=== PATIENT | female | born 1940 | race Caucasian/White ===

== ENCOUNTER 2018-05-31 07:00 | Outpatient (CLI) | payer MEDICARE, OTHER ==
[~2018-05-31] VITALS: Ht 157.5 cm; Wt 84.1 kg
--- NOTE | ~2018-05-31 | HEMODYNAMI ---
PATIENT:ZAHIDA MAS MEDICAL RECORD: [id number] : 36 LOCATION:[facility] ADMISSION DATE: 05/31/18 Generatedon:05/31/201810:19 Patient name: ZAHIDA MAS Patient #: [id number] SSN: : 1940 Date of study: 05/31/2018 Page: Of Hemodynamic Procedure Report Patient Data Patient Demographics Procedure consent was obtained First Name: ZAHIDA Gender: Female Last Name: CHACE : 1940 [facility] Initial: C Age: 77 year(s) Patient #: [id number] Race: Unknown Additional ID: [id number] Contact details Address: [address] [place] [address] State: [place] City: [facility] Zip code: [address] Past Medical History Allergies: No known allergies Admission Admission Data Admission Date: 05/31/2018 Admission Time: 7:00 Height (in.): 61 BSA: 1.87 (m2) Height (cm.): 154.94 BMI: 36.84 (kg/m2) Weight (lbs.): 195 Weight (kg.): 88.45 Lab Results Lab Result Date: 05/31/2018 Lab Result Time: 0:00 Biochemistry Name Units Result Min Max BUN mg/dl 15 --(--*-)-- 7 18 Creatinine mg/dl 1 --(--*-)-- 0.6 1.3 CBC Name Units Result Min Max Hematocrit % 41.9 -*(----)-- 42 54 Hemoglobin g/dl 13.7 --(*---)-- 13.5 17.5 Procedure Procedure Types Cath Procedure Diagnostic Procedure C [facility] w/Coronaries Sedation Charges Moderate Sedation up to 15 minutes Procedure Description Procedure Date Procedure Date: 05/31/2018 Procedure Start Time: 9:52 Procedure End Time: 10:18 Procedure Staff Name Function Ryan Finn MD Performing Physician Diane Cronin RT Monitor Sandro Flores RT Scrub Ching Ashby RN Nurse Procedure Data Cath Procedure Fluoroscopy Diagnostic fluoroscopy Total fluoroscopy Time: 3 time: 3 min min Diagnostic fluoroscopy Total fluoroscopy dose: 508 dose: 508 mGy mGy Contrast Material Contrast Material Type Amount (ml) Isovue 300 66 Entry Location Entry Primary Successful Side Size Upsize Upsize Entry Closure Succes sful Closure Location (Fr) 1 (Fr) 2 (Fr) Remarks Device Remarks Femoral Right 5 Fr Exoseal artery Estimated blood loss: 5 ml Diagnostic catheters Device Type Used For End Catheter Placement MULTIPACK JL 4.0 5Fr Procedure catheter MULTIPACK 3DRC 5Fr Procedure catheter MULTIPACK Pigtail 5 Fr Procedure catheter Procedure Complications No complications Procedure Medications Medication Administration Route Dosage Oxygen etCO2 Nasal cannula 2 l/min Lidocaine 2% added to field 20 Heparin Flush Bag added to field 2 bags (1000units/500ml NS) 0.9% NaCl I.V. 100 ml/hr Versed I.V. 1 mg Fentanyl I.V. 50 mcg Versed I.V. 1 mg Fentanyl I.V. 50 mcg Fentanyl I.V. 25 mcg Hemodynamics Rest BSA: 1.87 (m2) O2 Consumption: Estimated: 171.46 (ml/min) O2 Consumption indexed : Estimated:91.69 (ml/min/m) Heart Rate: 74 (bpm) Pressure Samples Time Site Value (mmHg) Purpose Heart Use Rate(bpm) 10:07 LV 158/-3,16 Snapshot 74 10:08 AO 168/64(106) Pullback 75 10:08 LV 161/-3,17 Pullback 75 Gradients Valve Time Site 1 Site 2 Mean SEP/DFP Peak To Heart Use (mmHg) (sec/min) Peak Rate (mmHg) (bpm) Aortic 10:08 LV AO 0 3 0 75 161/-3,17 168/64(106) Calculations Valve P-P Mean Valve Index Valve Source Name Gradient Area Flow (cm2) Aortic 0 0 0 0 Snapshots Pre Cath Intra NCS Post Cath Vital Signs Time Heart Resp SPO2 etCO2 NIBP (mmHg) Rhythm Pain Sedation Rate (ipm) (%) (mmHg) Status Level (bpm) 9:41:47 63 16 95 35.6 166/78(130) NSR 0 (11) 10(A) , No pain 9:46:13 69 17 96 13.3 141/73(113) NSR 0 (11) 10(A) , No pain 9:50:36 63 17 95 0 140/71(104) NSR 0 (11) 10(A) , No pain 9:54:51 64 13 94 0 122/64(99) NSR 0 (11) 9(A) , No pain 10:00:05 64 11 94 13 154/73(113) NSR 0 (11) 9(A) , No pain 10:05:32 68 14 95 11.1 150/73(114) NSR 0 (11) 9(A) , No pain 10:09:59 71 12 96 0 155/77(112) NSR 0 (11) 9(A) , No pain 10:14:21 71 20 98 37.9 160/83(118) NSR 0 (11) 10(A) , No pain 10:18:43 66 11 97 38.7 151/78(127) NSR 0 (11) 10(A) , No pain Medications Time Medication Route Dose Verified Delivered Reason Notes Eff ectiveness by by 9:45:40 Oxygen etCO2 2 Ryan Buffie used for Nasal l/min Aakash Ashby instructional technologist cannula 9:45:46 Lidocaine 2% added 20ml Ryan Ryan for local to vial Aakash Finn MD anesthetic field 9:45:52 Heparin Flush added 2 Ryan Ryan used for Bag to bags Aakash Finn MD procedure (1000units/500ml field NS) 9:46:01 0.9% NaCl I.V. 100 Ryan Buffie Per ml/hr Aakash Ashby RN physician 9:50:03 Versed I.V. 1 mg Ryan Buffie for Aakash Ashby RN sedation 9:50:09 Fentanyl I.V. 50 Ryan Buffie for mcg Aakash Ashby RN sedation 9:56:40 Versed I.V. 1 mg Ryan Buffie for Aakash Ashby RN sedation 9:56:44 Fentanyl I.V. 50 Ryan Buffie for mcg Aakash Ashby RN sedation 10:06:46 Fentanyl I.V. 25 Ryan Buffie for mcg Aakash Ashby RN sedation Procedure Log Time Note 8:56:18 Signed procedure consent form obtained from patient. 8:56:19 Diagnostic Cath status Elective 8:56:20 Time tracking: Regular hours (M-F 7:00 - 5:00) 8:56:24 Plan of Care:Hemodynamics will remain stable., Cardiac rhythm will remain stable., Comfort level will be maintained., Respiratory function will remain adequate., Patient/ family verbilizes understanding of procedure., Procedure tolerated without complication., Recovers from procedure without complications.. 8:56:40 H&P Date Dictated: 05/28/2018 Within 30 days and on chart., H&P Addendum completed by physician on day of procedure. (MUST COMPLETE FOR ALL OUTPATIENTS). 8:56:46 Patient allergic to No known allergies 8:56:52 Patient Height : 61 inches 8:56:56 Patient Weight : 195 lbs 9:20:16 Lab Result : BUN 15 mg/dl 9:20:16 Lab Result : Hemoglobin 13.7 g/dl 9:20:16 Lab Result : Creatinine 1 mg/dl 9:20:16 Lab Result : Hematocrit 41.9 % 9:22:31 Ching Ashby RN sent for patient. Start room use. 9:32:27 Patient received from Pre/Post Procedure Room to CCL 1 Alert and oriented. Tansferred to table in Supine position. 9:32:28 Warm blankets applied, and liang hugger turned on for patient comfort. 9:32:29 Correct patient and procedure confirmed by team. 9:32:29 ECG and BP/O2 sat monitors applied to patient. 9:39:36 Vital chart was started 9:43:17 Rhythm: sinus rhythm 9:43:18 Full Disclosure recording started 9:43:19 Pre-procedure instructions explained to patient. 9:43:19 Pre-op teaching completed and patient verbalized understanding. 9:43:21 Family in patients room. 9:43:22 Patient NPO since Midnight. 9:43:24 Is patient on blood thinner?No 9:43:25 Patient diabetic? Yes. 9:43:26 If diabetic: On Metformin? Yes 9:43:29 If on Metformin: Last Dose? 05/28/2018 9:43:32 Previous problem with sedation/anesthesia? No ? 9:43:34 Snore? Yes 9:43:36 Sleep apnea? No 9:43:37 Deviated septum? No 9:43:42 Opens mouth fully? Yes 9:43:43 Sticks out tongue? Yes 9:43:46 Airway obstruction? No ? 9:43:51 Dentures? Yes OUT 9:43:55 Pre procedure: right dorsailis pedis pulse 1+ Palpable, but thready & weak; easily obliterated 9:43:58 Patient pain scale 0/10 ?. 9:44:02 IV patent on arrival in right antecubital with 0.9% NaCl at O. 9:44:12 Lab results completed and on chart. 9:44:15 Right groin area was prepped with chlora-prep and draped in sterile fashion 9:44:16 Alarms reviewed by R. N. 9:44:17 Sharps counted by scrub and verified by R.N. 9:44:21 Use device set Femoral Dx 9:44:22 ACIST Syringe (52262) opened to sterile field. 9:44:23 Bag Decanter (2002S) opened to sterile field. 9:44:25 ACIST Manifold (74391) opened to sterile field. 9:44:25 ACIST Hand Control (76525) opened to sterile field. 9:44:26 Tegaderm 4 x 4 (1626W) opened to sterile field. 9:44:28 Medline Cath Pack ([id number]) opened to sterile field. 9:44:29 DIAGNOSTIC WIRE .035 260cm J wire (782567) opened to sterile field. 9:44:30 DIAGNOSTIC Multipack 5Fr catheter set (MS3240) opened to sterile field. 9:44:31 SHEATH 5FR [place] ([id number]) opened to sterile field. 9:45:40 Oxygen 2 l/min etCO2 Nasal cannula was administered by Ching Ashby RN; used for procedure; 9:45:46 Lidocaine 2% 20ml vial added to field was administered by Ryan Finn MD; for local anesthetic; 9:45:52 Heparin Flush Bag (1000units/500ml NS) 2 bags added to field was administered by Ryan Finn MD; used for procedure; 9:46:01 0.9% NaCl 100 ml/hr I.V. was administered by Ching Ashby RN; Per physician; 9:46:50 Physician arrived 9:46:51 Final Timeout: patient, procedure, and site verified with staff and physician. All members of the team are in agreement. 9:46:54 Right groin site verified by team. 9:47:05 Maximum allowable Isovue 300 dose 300ml. Physician notified. (300ml for normal creatinines. For patients with creatinine of 1.7 or higher multiply weight(kg) x 5 divided by creatinine.) 9:47:10 Fire Safety Assessment: A--An alcohol-based skin anteseptic being used preoperatively., C--Open oxygen or nitrous oxide is being used., D--An ESU, laser, or fiber-optic light is being used. 9:47:13 Physical assessment completed. ASA score P 2 - A patient with mild systemic disease as per Ryan Finn MD. 9:47:17 Sedation plan: IV Moderate Sedation Medication:Versed, Fentanyl 9:49:41 Zero performed for pressure channel P1 9:50:03 Versed 1 mg I.V. was administered by Ching Ashby RN; for sedation; 9:50:09 Fentanyl 50 mcg I.V. was administered by Ching Ashby RN; for sedation; 9:52:35 Procedure started. 9:52:59 Local anesthetic to right femoral artery with Lidocaine 2% by Ryan Finn MD.INITIAL ACCESS ONLY 9:56:40 Versed 1 mg I.V. was administered by Ching Ashby RN; for sedation; 9:56:44 Fentanyl 50 mcg I.V. was administered by Ching Ashby RN; for sedation; 10:01:10 A 5 Fr sheath was inserted into the Right Femoral artery 10:01:40 A MULTIPACK JL 4.0 5Fr catheter was advanced over the wire and used for Procedure. 10:03:36 LCA angiography performed. 10:04:18 Catheter exchanged over wire. 10:04:25 A MULTIPACK 3DRC 5Fr catheter was advanced over the wire and used for Procedure. 10:05:31 RCA angiography performed. 10:05:48 Catheter exchanged over wire. 10:06:17 A MULTIPACK Pigtail 5 Fr catheter was advanced over the wire and used for Procedure. 10:06:32 LV gram done using EDUARDO 10:06:34 Injector settings: Ml/sec: 10, Volume: 20, 10:06:46 Fentanyl 25 mcg I.V. was administered by Ching Ashby RN; for sedation; 10:07:03 LV hemodynamics recorded. 10:07:14 EF : 60 % 10:12:56 Catheter removed. 10:12:58 EXOSEAL 5Fr (EX500) opened to sterile field. 10:14:09 Sheath removed intact; hemostasis achieved with Exoseal to the Right Femoral artery. 10:14:12 Procedure ended.(Physican Out) 10:14:27 Fluoroscopy time 03.00 minutes. 10:14:33 Fluoroscopy dose: 508 mGy 10:14:33 Flurop Dose total: 508 10:14:36 Contrast amount:Isovue 300 66ml. 10:14:37 Sharps counted by scrub and verified by R.N. 10:14:40 Post-op/insertion site Right Femoral artery dressed using a 4 x 4 and Tegaderm. 10:17:07 Post-procedure physical assessment completed. ASA score P 2 - A patient with mild systemic disease as per Ryan Finn MD. 10:17:11 Post procedure rhythm: sinus rhythm 10:17:17 Estimated blood loss: 5 ml 10:17:18 Post procedure instruction explained to patient.Patient verbalizes understanding. 10:17:19 Patient needs reinforcement of post procedure teaching. 10:17:47 Procedure type changed to Cath procedure, Diagnostic procedure, LHC, LHC w/Coronaries, Sedation Charges, Moderate Sedation up to 15 minutes 10:18:11 Procedure and supply charges have been captured, reviewed, submitted and are correct. 10:18:13 Procedure Complication : No complications 10:18:27 Vital chart was stopped 10:18:28 See physician's report for complete and final results. 10:18:30 Report given to Pre/Post Procedure Room. 10:18:35 Patient transfered to Pre/Post Procedure Room with Bed. 10:18:37 Procedure ended. 10:18:37 Full Disclosure recording stopped 10:18:40 End room use (Document Last) Device Usage Item Name Manufacture Quantity Catalog Hospital Part Current Minimal L ot# / Number Charge Number Stock Stock Serial# Code ACIST Acist 1 40716 639474 203508 853939 20 Syringe Medical (60936) Systems Inc Bag Microtek 1 933851 02846 110810 5 Decanter Medical Inc. () ACIST Acist 1 01787 047549 473890 521564 5 Manifold Medical (26756) Systems Inc ACIST Hand Acist 1 46294 444806 150643 342146 5 Control Medical (93467) Systems Inc Tegaderm 4 3M 1 1626W 585752 934193 611019 5 x 4 (1626W) Medline Medline 1 [id number] 004330 23640 178170 5 Cath Pack ([id number]) DIAGNOSTIC St Tez 1 955434 596201 301277 039861 30 WIRE .035 260cm J wire (443666) DIAGNOSTIC Cardinal 1 SM3292 511611 58830 866909 30 Multipack Health 5Fr catheter set (LZ1778) SHEATH 5FR Terumo 1 NGY452 590653 408083 296610 5 [place] (QSX120) MULTIPACK Cardinal 1 364327 5 JL 4.0 5Fr Health catheter MULTIPACK Cardinal 1 [id number] 5 3DRC 5Fr Health catheter MULTIPACK Cardinal 1 506191 5 Pigtail 5 Health Fr catheter EXOSEAL 5Fr Cardinal 1 EX500 764188 527114 378847 10 (EX500) Health Signature Audit [place] Stage Time Signature Unsigned Intra-Procedure 05/31/2018 Diane Cronin 10:19:43 AM RT(R) Signatures Monitor : Diane Cronin Signature : RT Date : Time : [id number] [place] [address]
[2018-05-31] MEDS ORDERED: GLUCOPHAGE1000 MG PO (07:26)
[2018-05-31 07:36] VITALS: BP 185/76; Ht 157.5 cm; Wt 84.1 kg
[2018-05-31 07:44] LABS: BASOPHILS 0.4 % (0-2); HEMATOCRIT 41.9 % (36.0-48.0); HEMOGLOBIN 13.7 g/dL (12-16); IMMATURE GRANULOCYTES 0.1 % (0-5); LYMPHOCYTES 22.8 % (15-50); MCH 28.4 pg (26.0-34.0); MCHC 32.7 g/dL (31.0-37.0); MCV 86.7 fL (80.0-100.0); MEAN PLATELET VOLUME 9.5 fL (7.4-10.4); NEUTROPHILS 62.7 % (40-80); PLATELET COUNT 271 10x3/uL (130-400); RBC 4.83 10x6/uL (4.00-5.40); RDW 12.4 % (11.5-14.5); WBC 7.8 10x3/uL (4.8-10.8)
[2018-05-31 07:52] LABS: ANION GAP 10.6 mmol/L (8-16); CALCIUM 8.6 mg/dL (8.5-10.1); CARBON DIOXIDE 29.2 mmol/L (21.0-32.0); POTASSIUM - SERUM 3.8 mmol/L (3.5-5.1)
--- NOTE | 2018-05-31 10:46 | NUR ---
PO FLUIDS SERVED. PT IS ALERT, DR REYES HAS ROUNDED AND SPOKE WITH PT AND SON. HOB IS FLAT, PT INSTRUCTED TO KEEP HEAD FLAT TO PILLOW AND RIGHT LEG STRAIGHT. VSS, RESP WITH EASE ON O2 AT 2LPM VIA NC. DRESSING IS CDI, PEDAL PULSES PALPABLE.
[2018-05-31] MEDS ORDERED: XANAX0.5 MG PO (10:54)
--- NOTE | 2018-05-31 11:16 | NUR ---
PT DENIES ANY C/O. DRESSING REMAINS CDI TO RIGHT GROIN, AREA IS SOFT AND NONTENDER. PEDAL PULSES PALPABLE. HOB IS FLAT, CALL LIGHT IN REACH, NO FAMILY AT BEDSIDE AT THIS TIME.
--- NOTE | 2018-05-31 11:38 | NUR ---
DRESSING IS CDI, PEDAL PULSES PALPABLE. HOB IS FLAT, PT DENIES NEEDS AT THIS TIME. ANA PO FLUIDS. BP IS 134/53, NSR RATE 61.
--- NOTE | 2018-05-31 12:03 | NUR ---
SON AT BEDSIDE, PT IS ALERT AND DENIES ANY C/O. DRESSING REMAINS CDI AND PEDAL PULSES PALPABLE. HOB IS FLAT, VSS. CALL LIGHT IN REACH.
--- NOTE | 2018-05-31 13:02 | NUR ---
1220 HOB ELEVATED AND SANDWICH TRAY SERVED. PT IS ALERT AND DENIES ANY C/O. DRESSING IS CDI TO RIGHT GROIN, AREA IS SOFT AND NONTENDER. PEDAL PULSES PALPABLE. VSS, SON AT BEDSIDE. 1240 DRESSING REMAINS CDI TO RIGHT GROIN, PEDAL PULSES PALPABLE. PT DENIES ANY C/O. IV DC'D WITH CATH INTACT. PT DRESSING FOR DC WITH ASSIST.
--- NOTE | 2018-05-31 13:04 | NUR ---
PT HAS DRESSED FOR DC TO HOME. DC INSTRUCTIONS HAVE BEEN REVIEWED WITH PT AND SON WHO VERBALIZE UNDERSTANDING. PT ESCORTED TO PRIVATE AUTO VIA WC BY NURSE WITH SON DRIVING HER HOME. PT DENIES ANY C/O UPON DC. HAS ALL PERSONAL BELONGINGS AND DC INSTRUCTIONS AT TIME OF DISCHARGE TO HOME.
== END 2018-05-31 13:05 | disposition home or self-care (01) ==
LOC: D.CATH 07:00
PROVIDERS: ATTEND Internal Medicine Cardiovascular Disease
DX: I25.119 Atherosclerotic heart disease of native coronary artery with unspecified angina pectoris (principal); T82.855A Stenosis of coronary artery stent, initial encounter; Z01.812 Encounter for preprocedural laboratory examination

== ENCOUNTER 2018-06-14 06:22 | Outpatient (CLI) | payer MEDICARE, OTHER ==
[~2018-06-14] VITALS: Ht 157.5 cm; Wt 84.1 kg
--- NOTE | ~2018-06-14 | HEMODYNAMI ---
PATIENT:ZAHIDA MAS MEDICAL RECORD: [id number] : 36 LOCATION:[facility] ADMISSION DATE: 06/14/18 Generatedon:06/14/201810:30 Patient name: ZAHIDA MAS Patient #: [id number] SSN: : 1940 Date of study: 06/14/2018 Page: Of Hemodynamic Procedure Report Patient Data Patient Demographics Procedure consent was obtained First Name: ZAHIDA Gender: Female Last Name: CHACE : 1940 [facility] Initial: C Age: 77 year(s) Patient #: [id number] Race: Unknown Additional ID: [id number] Contact details Address: [address] [place] [address] State: [place] City: [facility] Zip code: [address] Past Medical History Allergies: No known allergies Admission Admission Data Admission Date: 06/14/2018 Admission Time: 6:22 Weight (lbs.): 185.19 Weight (kg.): 84 Lab Results Lab Result Date: 06/14/2018 Lab Result Time: 7:00 Biochemistry Name Units Result Min Max BUN mg/dl 13 --(--*-)-- 7 18 Creatinine mg/dl 0.8 --(-*--)-- 0.6 1.3 CBC Name Units Result Min Max Hematocrit % 38.4 *-(----)-- 42 54 Hemoglobin g/dl 12.3 *-(----)-- 13.5 17.5 Procedure Procedure Types Cath Procedure PCI Procedure Coronary Stent Coronary Stent Initial Procedure Description Procedure Date Procedure Date: 06/14/2018 Procedure Start Time: 9:13 Procedure End Time: 10:26 Procedure Staff Name Function Ryan Finn MD Performing Physician Claritza Jasso RT Monitor Sandro Flores RT Scrub Theresa Arrington RN Nurse Jim Ko RT Scrub Procedure Data Cath Procedure Fluoroscopy Diagnostic fluoroscopy Total fluoroscopy Time: time: 11.8 min 11.8 min Diagnostic fluoroscopy Total fluoroscopy dose: 987 dose: 987 mGy mGy Contrast Material Contrast Material Type Amount (ml) Isovue 300 138 Entry Location Entry Primary Successful Side Size Upsize Upsize Entry Closure Succes sful Closure Location (Fr) 1 (Fr) 2 (Fr) Remarks Device Remarks Femoral Right 6 Fr 6 Fr Exoseal artery Short Long Femoral Left 6 Fr Exoseal artery Short Estimated blood loss: 5 ml Diagnostic catheters Device Type Used For End Catheter Placement DIAGNOSTIC Pigtail 5Fr Multi-vessel catheter ([id number]) Angiography Procedure Complications No complications Procedure Medications Medication Administration Route Dosage 0.9% NaCl I.V. 100 ml/hr Oxygen etCO2 Nasal cannula 2 l/min Lidocaine 2% added to field 20 Heparin Flush Bag added to field 2 bags (1000units/500ml NS) Versed I.V. 2 mg Fentanyl I.V. 50 mcg Versed I.V. 2 mg Fentanyl I.V. 50 mcg Fentanyl I.V. 50 mcg Fentanyl I.V. 50 mcg Versed I.V. 2 mg Heparin Bolus I.V. 8500 units Nitroglycerin IC/IA I.C. 100 mcg Hemodynamics Rest HGB: 12.3 (g/dl) Heart Rate: 74 (bpm) Snapshots Pre Cath Intra NCS Post Cath Vital Signs Time Heart Resp SPO2 etCO2 NIBP (mmHg) Rhythm Pain Status Sedation Rate (ipm) (%) (mmHg) Level (bpm) 9:05:12 67 20 98 21.8 207/95(145) NSR 0 (11) , No 10(A) pain 9:09:39 69 17 99 15 175/87(137) NSR 0 (11) , No 10(A) pain 9:14:09 67 16 97 12 176/87(135) NSR 0 (11) , No 10(A) pain 9:18:43 66 14 98 15.8 170/77(133) NSR 0 (11) , No 9(A) pain 9:23:16 69 16 98 15.8 172/83(130) NSR 0 (11) , No 9(A) pain 9:27:46 68 11 98 17.3 178/86(127) NSR 0 (11) , No 9(A) pain 9:32:17 69 14 98 12.8 158/80(133) NSR 0 (11) , No 9(A) pain 9:38:17 89 19 96 24.1 212/106(154) NSR 5 (11) , 10(A) Very distressing 9:42:50 73 14 96 46.8 168/79(125) NSR 0 (11) , No 9(A) pain 9:47:20 73 14 97 15.8 163/82(113) NSR 0 (11) , No 9(A) pain 9:51:50 75 15 98 15.8 169/83(127) NSR 0 (11) , No 9(A) pain 9:56:21 77 16 99 21.8 182/104(140) NSR 5 (11) , 10(A) Very distressing 10:00:55 70 10 97 11.3 175/87(130) NSR 0 (11) , No 9(A) pain 10:06:15 73 12 98 16.6 186/83(138) NSR 0 (11) , No 9(A) pain 10:10:47 74 13 97 12.8 187/89(135) NSR 0 (11) , No 9(A) pain 10:15:09 75 12 96 12.8 140/78(97) NSR 0 (11) , No 9(A) pain 10:19:27 72 12 96 49.8 143/74(111) NSR 0 (11) , No 9(A) pain 10:24:49 80 19 97 14.3 163/84(123) NSR 0 (11) , No 10(A) pain Medications Time Medication Route Dose Verified Delivered Reason Notes Effectiveness by by 9:05:46 0.9% NaCl I.V. 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 2 mg Ryan Theresa for sedation Aakash Arrington RN 9:09:24 Fentanyl I.V. 50 Ryan Theresa for sedation mcg Aakash Arrington RN 9:14:40 Versed I.V. 2 mg Ryan Theresa for sedation Aakash Arrington RN 9:14:44 Fentanyl I.V. 50 Ryan Theresa for sedation mcg Aakash Arrington RN 9:40:36 Fentanyl I.V. 50 Ryan Theresa for sedation mcg Aakash Arrington RN 9:57:31 Fentanyl I.V. 50 Ryan Theresa for sedation mcg Aakash Arrington RN 10:02:31 Versed I.V. 2 mg Ryan Theresa for sedation Aakash Arrington RN 10:10:13 Heparin Bolus I.V. 8500 Ryan Theresa for verif ied units Aakash Arrington anticoagulation with Dr. KRAIG Finn 10:18:31 Nitroglycerin I.C. 100 Ryan Ryan for IC/IA mcg Aakash hawkins Procedure Log Time Note 8:34:56 Informed consent obtained and on chart 8:36:13 Lab Result : Creatinine 0.8 mg/dl 8:36:13 Lab Result : BUN 13 mg/dl 8:36:13 Lab Result : Hematocrit 38.4 % 8:36:13 Lab Result : Hemoglobin 12.3 g/dl 8:36:18 Patient Weight : 185.19 lbs 8:40:39 Claritza Jasso RT(R) sent for patient. Start room use. 8:50:58 Diagnostic Cath status Elective 8:54:45 Time tracking: Regular hours (M-F 7:00 - 5:00) 8:54:49 Plan of Care:Hemodynamics will remain stable., Cardiac rhythm will remain stable., Comfort level will be maintained., Respiratory function will remain adequate., Patient/ family verbilizes understanding of procedure., Procedure tolerated without complication., Recovers from procedure without complications.. 8:54:53 Patient received from Pre/Post Procedure Room to CCL 1 Alert and oriented. Tansferred to table in Supine position. 8:54:54 Warm blankets applied, and liang hugger turned on for patient comfort. 8:54:54 Correct patient and procedure confirmed by team. 8:54:55 ECG and BP/O2 sat monitors applied to patient. 8:59:52 Vital chart was started 9:05:46 0.9% NaCl 100 ml/hr I.V. was administered by Theresa Arrington RN; used for procedure; 9:05:53 Oxygen 2 l/min etCO2 Nasal cannula was administered by Theresa Arrington RN; used for procedure; 9:05:58 Lidocaine 2% 20ml vial added to field was administered by Ryan Finn MD; for local anesthetic; 9:06:01 Baseline sample Acquired. 9:06:03 Heparin Flush Bag (1000units/500ml NS) 2 bags added to field was administered by Ryan Finn MD; used for procedure; 9:06:08 Rhythm: sinus rhythm 9:06:10 Full Disclosure recording started 9:06:14 H&P Date Dictated: 06/14/2018 Within 30 days and on chart., H&P Addendum completed by physician on day of procedure. (MUST COMPLETE FOR ALL OUTPATIENTS). 9:06:16 Pre-procedure instructions explained to patient. 9:06:16 Pre-op teaching completed and patient verbalized understanding. 9:06:20 Family in waiting room. 9:06:22 Patient NPO since Midnight. 9:06:24 Is the patient allergic to Iodine/contrast media? No. 9:06:26 Was the patient premedicated? No 9:06:27 Is patient on blood thinner?No 9:06:28 Patient diabetic? Yes. 9:06:29 If diabetic: On Metformin? Yes 9:06:34 If on Metformin: Last Dose? 06/11/2018 9:06:38 Previous problem with sedation/anesthesia? No ? 9:06:40 Snore? Yes 9:06:41 Sleep apnea? No 9:06:41 Deviated septum? No 9:06:42 Opens mouth fully? Yes 9:06:43 Sticks out tongue? Yes 9:06:44 Airway obstruction? No ? 9:06:48 Dentures? Yes out 9:08:17 Patient pain scale 0/10 ?. 9:08:23 IV patent on arrival in right wrist with 0.9% NaCl at [facility]. 9:08:26 Lab results completed and on chart. 9:08:29 Right groin area was prepped with chlora-prep and draped in sterile fashion 9:08:30 Alarms reviewed by R. N. 9:08:30 Sharps counted by scrub and verified by R.N. 9:08:32 Physician arrived 9:08:32 --------ALL STOP TIME OUT------ 9:08:33 Final Timeout: patient, procedure, and site verified with staff and physician. All members of the team are in agreement. 9:08:35 Right groin site verified by team. 9:08:38 Maximum allowable Isovue 300 dose 300ml. Physician notified. (300ml for normal creatinines. For patients with creatinine of 1.7 or higher multiply weight(kg) x 5 divided by creatinine.) 9:08:42 Fire Safety Assessment: A--An alcohol-based skin anteseptic being used preoperatively., C--Open oxygen or nitrous oxide is being used., D--An ESU, laser, or fiber-optic light is being used. 9:08:46 Physical assessment completed. ASA score P 2 - A patient with mild systemic disease as per Ryan Finn MD. 9:08:50 Sedation plan: IV Moderate Sedation Medication:Versed, Fentanyl 9:09:19 Versed 2 mg I.V. was administered by Theresa Arrington RN; for sedation; 9:09:24 Fentanyl 50 mcg I.V. was administered by Theresa Arrington RN; for sedation; 9:12:18 Procedure started. 9:12:22 Use device set CATH PACK 9:12:23 ACIST Syringe (55414) opened to sterile field. 9:12:24 ACIST Hand Control (69879) opened to sterile field. 9:12:24 ACIST Manifold (18988) opened to sterile field. 9:12:24 Medline Cath Pack ([id number]) opened to sterile field. 9:12:25 Bag Decanter (2002S) opened to sterile field. 9:12:26 DIAGNOSTIC WIRE .035 260cm J wire (053716) opened to sterile field. 9:12:56 SHEATH 6FR [place] (CSY225) opened to sterile field. 9:12:57 INFLATOR Merit BasixCompak (SC5568) opened to sterile field. 9:12:57 TUBING High Pressure Extension Tubing (Aakash) ([id number]) opened to sterile field. 9:12:58 BMW 300cm Burtrum 2 J wire ([id number]) opened to sterile field. 9:13:11 Local anesthetic to right femoral artery with Lidocaine 2% by Ryan Finn MD.INITIAL ACCESS ONLY 9:13:21 Zero performed for pressure channel P1 9:14:40 Versed 2 mg I.V. was administered by Theresa Arrington RN; for sedation; 9:14:44 Fentanyl 50 mcg I.V. was administered by Theresa Arrington RN; for sedation; 9:15:18 GUIDE 6FR XBLAD 3.5 catheter ([id number]) opened to sterile field. 9:17:19 MICROPUNCTURE 4FR Cook (K92962) opened to sterile field. 9:24:01 prepping left groin 9:28:22 Jim Ko RT scrubbed in and assisting in femoral access 9:29:13 MICROPUNCTURE 4FR Cook (R10593) opened to sterile field. 9:29:23 Local anesthetic to left femerol artery with Lidocaine 2% by Ryan Finn MD.ADDITIONAL ACCESS 9:31:45 WHOLEY 300cm 0.035 wire ([id number]) opened to sterile field. 9:32:23 whooley wire used to gain access 9:32:28 Access obtained with 4Fr micropunture. 9:32:37 A 6 Fr Short sheath was inserted into the Right Femoral artery 9:33:01 6 Fr xblad 3.5 guide catheter was inserted over the wire 9:39:17 Guide Catheter removed. unable to cannulate vessel. 9:39:31 SHEATH 6FR [place] (AZE689) opened to sterile field. 9:40:20 6F pinnacle sheath exchanged for new 6F pinnacle sheath; original was kinked 9:40:36 Fentanyl 50 mcg I.V. was administered by Theresa Arrington RN; for sedation; 9:41:33 GUIDE 6FR XBLAD 3.5 catheter ([id number]) opened to sterile field. 9:42:12 new xblad 3.5 used to cannulate vessel; original was damaged 9:43:26 Guide Catheter removed. unable to cannulate vessel. 9:44:09 GUIDE 6FR EBU 3.0 catheter ([id number]) opened to sterile field. 9:45:07 6 Fr ebu 3 guide catheter was inserted over the wire 9:45:15 Guide Catheter removed. unable to cannulate vessel. 9:45:34 SHEATH 6FR Destination (RSR01) opened to sterile field. 9:46:15 Sheath upsized to a 6 Fr Long. 9:48:24 difficulty advancing long 6f sheath; exchanging for 6F short sheath 9:48:35 A DIAGNOSTIC Pigtail 5Fr catheter ([id number]) was advanced over the wire and used for Multi-vessel Angiography. 9:49:38 Abdominal angiogram w/ runoff was performed. 9:55:10 Catheter removed. 9:57:31 Fentanyl 50 mcg I.V. was administered by Theresa Arrington RN; for sedation; 10:00:51 attempting left femoral access 10:02:31 Versed 2 mg I.V. was administered by Theresa Arrington RN; for sedation; 10:05:34 Access obtained with 4Fr micropunture. 10:06:11 A 6 Fr Short sheath was inserted into the Left Femoral artery 10:08:18 GUIDE 6FR EBU 3.5 catheter ([id number]) opened to sterile field. 10:08:24 6 Fr ebu 3.5 guide catheter was inserted over the wire 10:09:06 bmw wire advanced. 10:10:11 Wire advanced across lesion. 10:10:13 Heparin Bolus 8500 units I.V. was administered by Theresa Arrington RN; for anticoagulation; verified with Dr. Finn 10:14:40 Inflate balloon Inflation number: 1 A EMERGE OTW 3.0 x 12 balloon ([id number]) was prepped and advanced across the Mid LAD, then inflated to 12 KAMINI for 0:10 (min:sec). 10:16:18 Inflation number: 2 The EMERGE OTW 3.0 x 12 balloon ([id number]) was reinflated across the Mid LAD, to 14 KAMINI for 0:10 (min:sec). 10:18:31 Nitroglycerin IC/IA 100 mcg I.C. was administered by Ryan Finn MD; for vasodilation; 10:19:00 Balloon removed over the wire. 10:22:43 Place stent Inflation Number: 3 A JIM OTW 3.0 x 18 stent ([id number]) was prepped and advanced across the Mid LAD. The stent was deployed at 14 KAMINI for 0:10 (min:sec). 10:22:52 Stent catheter was removed intact over wire. 10:22:54 Wire removed. 10:22:55 Guide catheter removed. 10:23:03 EXOSEAL 6Fr (EX600) opened to sterile field. 10:23:04 EXOSEAL 6Fr (EX600) opened to sterile field. 10:24:07 Sheath removed intact; hemostasis achieved with Exoseal to the Left Femoral artery. 10:24:13 Sheath removed intact; hemostasis achieved with Exoseal to the Right Femoral artery. 10:24:34 Procedure ended.(Physican Out) 10:24:44 Fluoroscopy time 11.80 minutes. 10::51 Flurop Dose total: 987 10::51 Fluoroscopy dose: 987 mGy 10:24:57 Contrast amount:Isovue 300 138ml. 10:24:59 Sharps counted by scrub and verified by R.N. 10:25:01 Insertion/operative site no bleeding no hematoma. 10:25:04 Post-op/insertion site Right Femoral artery dressed using a 4 x 4 and Tegaderm. 10:25:22 Post-op/insertion site Left Femoral artery dressed using a 4 x 4 and Tegaderm. 10:25:24 Post Procedure Pulses reassessed and unchanged 10:25:40 Post procedure rhythm: unchanged. 10:25:43 Estimated blood loss: 5 ml 10:25:49 Post procedure instruction explained to patient.Patient verbalizes understanding. 10:25:50 Patient needs reinforcement of post procedure teaching. 10:25:59 Procedure type changed to Cath procedure, PCI procedure, Coronary Stent, Coronary Stent Initial 10:26:01 Procedure and supply charges have been captured, reviewed, submitted and are correct. 10:26:05 Procedure Complication : No complications 10:26:07 Vital chart was stopped 10:26:09 See physician's report for complete and final results. 10:26:13 Report given to Pre/Post Procedure Room. 10:26:15 Patient transfered to Pre/Post Procedure Room with Stretcher. 10:26:20 Procedure ended. 10:26:20 Full Disclosure recording stopped 10:26:27 ACC-PCI Only Patient was given prescriptions, or instructed by Ryan Finn MD to start/continue the following medications upon discharge: Plavix 10:26:30 End room use (Document Last) Intervention Summary Intervention Notes Time ActionType Lesion and Equipment Action# Pressure Duration Attributes Used 10:14:40 Inflate Mid LAD EMERGE OTW 1 12 00:10 balloon 3.0 x 12 balloon ([id number]) 10:16:18 Reinflate Mid LAD EMERGE OTW 2 14 00:10 balloon 3.0 x 12 balloon ([id number]) 10:22:43 Place stent Mid LAD JIM OTW 3.0 3 14 00:10 x 18 stent ([id number]) Device Usage Item Name Manufacture Quantity Catalog Number Hospital Part Current M inimal Lot# / Charge Number Stock Stock Serial# Code ACIST Syringe Acist 1 14074 931455 732465 995950 2 0 (57535) Medical Systems Inc ACIST Hand Acist 1 53113 122881 669618 688399 5 Control Medical (10712) Systems Inc ACIST Acist 1 54050 210409 724215 695558 5 Manifold Medical (14555) Systems Inc Medline Cath Medline 1 [id number] 047753 59031 394554 5 Pack ([id number]) Bag Decanter Microtek 1 2001S 987689 31506 511248 5 () Medical Inc. DIAGNOSTIC St Te[place] 1 269016 298013 810546 124987 3 0 WIRE .035 260cm J wire (658076) SHEATH 6FR Terumo 2 YJG739 303231 218503 398364 4 0 [place] (CTN768) INFLATOR Merit 1 LY0406 041360 840812 667270 1 5 Merit Medical BasixCompak (YN7787) TUBING High Merit 1 QM0031G 367751 24173 094620 1 0 Pressure Medical Extension Tubing (Finn) (DC8129O) BMW 300cm Mckoy 1 [id number] 041413 612987 758069 5 Burtrum 2 J Vascular wire (2941983X) GUIDE 6FR Cardinal 2 [id number] 590737 900046 888034 1 0 XBLAD 3.5 Health catheter (85256262) MICROPUNCTURE Cook Medical 2 Y34829 568088 156345 250717 5 4FR [employer] (Y16450) WHOLEY 300cm Medtronic 1 [id number] 448921 596869 026427 3 0.035 wire ([id number]) GUIDE 6FR EBU Medtronic 1 JH9DWA55 506193 11252 454187 0 3.0 catheter ([id number]) SHEATH 6FR Terumo 1 RSR01 086360 24416 256611 5 Destination (RSR01) DIAGNOSTIC Cardinal 1 214863O 167038 293420 266669 5 Pigtail 5Fr Health catheter (163329O) GUIDE 6FR EBU Medtronic 1 [id number] 061821 57627 932209 3 3.5 catheter ([id number]) EMERGE OTW [place] 1 [id number] 787852 588467 888322 5 [id number] 3.0 x 12 Scientific balloon ([id number]) JIM OTW 3.0 Medtronic 1 [id number] 365840 1840583 477763 5 [id number] x 18 stent ([id number]) EXOSEAL 6Fr Cardinal 2 EX600 611667 909185 665567 1 0 (EX600) Health Signature Audit Ambia Stage Time Signature Unsigned Intra-Procedure 06/14/2018 Claritza Jasso 10:30:28 AM RT(R) Signatures Monitor : Claritza Jasso RT Signature : Date : Time : [id number] [place] [address]
[~2018-06-14 06:22] MED LIST: GLUCOPHAGE1000 MG PO; XANAX0.5 MG PO
[2018-06-14 06:54] VITALS: BP 208/90; Ht 157.5 cm; Wt 84.1 kg
[2018-06-14 07:23] LABS: BASOPHILS 0.3 % (0-2); EOSINOPHILS 8.7 % (0-7); HEMATOCRIT 38.4 % (36.0-48.0); HEMOGLOBIN 12.3 g/dL (12-16); IMMATURE GRANULOCYTES 0.2 % (0-5); LYMPHOCYTES 26.7 % (15-50); MCH 27.8 pg (26.0-34.0); MCV 86.9 fL (80.0-100.0); MEAN PLATELET VOLUME 9.6 fL (7.4-10.4); MONOCYTES 9.7 % (2-11); NEUTROPHILS 54.4 % (40-80); PLATELET COUNT 255 10x3/uL (130-400); RBC 4.42 10x6/uL (4.00-5.40); RDW 12.6 % (11.5-14.5); WBC 6.2 10x3/uL (4.8-10.8)
[2018-06-14 07:33] LABS: ANION GAP 12.5 mmol/L (8-16); CALCIUM 8.7 mg/dL (8.5-10.1); CARBON DIOXIDE 28.2 mmol/L (21.0-32.0); CREATININE - SERUM 0.8 mg/dL (0.6-1.3); POTASSIUM - SERUM 3.7 mmol/L (3.5-5.1)
--- NOTE | 2018-06-14 11:04 | NUR ---
1056 PT STARTED DRY HEAVING, PRESSURE HELD TO GROIN SITES. PT DENIES ANY C/O CHEST PAIN. VOMITED/COUGHED UP SMALL AMOUNT OF PHLEGM. PT INCONTINENET OF LARG AMOUNT OF URINE DURING EPISODE. ZOFRAN 4MG IV X1 AND PERICARE/ LINEN CHANGE DONE. DRESSING REMAIN CDI TO GROINS, PEDAL PULSES PALPABLE. HOB IS FLAT BUT BED TILTED IN [place]VERSE [place]. NO FAMILY AT BEDISDE, CALL LIGHT IS IN REACH.
--- NOTE | 2018-06-14 11:11 | NUR ---
DRESSINGS TO BILAT GROINS CDI, AREAS ARE SOFT AND NONTENDER. PEDAL PULSES PALPABLE. NSR, RATE 72. PT BACK TO SLEEPING, RESP WITH EASE ON O2 AT 2LPM VIA NC.
[2018-06-14] MEDS ORDERED: PLAVIX75 MG PO (11:14)
[2018-06-14] MEDS ORDERED: BAYER CHEWABLE81 MG PO (11:14)
--- NOTE | 2018-06-14 11:26 | NUR ---
PT SLEEPING, RESP WITH EASE ON O2 AT 2LPM VIA NC. DRESSINGS CDI TO BILAT GROINS, HOB IS FLAT, VSS. NO FAMILY AT BEDSIDE, CALL LIGHT IS IN REACH.
--- NOTE | 2018-06-14 12:03 | NUR ---
PT AWAKE, DENIES ANY C/O OR NEEDS AT THIS TIME. HOB IS FLAT, VSS. DRESSINGS CDI TO BIILAT GROINS. PEDAL PULSES PALPABLE. CALL LIGHT IN REACH.
--- NOTE | 2018-06-14 12:30 | NUR ---
PT SLEEPING, RESP WTIH EASE ON O2 AT 2LPM. NSR, RATE IS 60, BP IS 141/63. DRESSINGS TO BILAT GROINS ARE CDI, PEDAL PULSES PALPABLE. HOB FLAT, CALL LIGHT IN REACH.
--- NOTE | 2018-06-14 12:52 | NUR ---
DRESSINGS CDI, PEDAL PULSES PALPABLE. VSS, HOB IS FLAT, CALL LIGHT IN REACH. PT SLEEPING, RESP WITH EASE.
--- NOTE | 2018-06-14 13:46 | NUR ---
PT AWAKE, DENIES ANY C/O. REQUEST DIET SODA AND THIS SERVED. PT FALLS BACK TO SLEEP QUICKLY, FAMILY AT BEDSIDE. HOB IS FLAT. DRESSINGS CDI, PEDAL PULSES PALPABLE. CALL LIGHT IN REACH.
--- NOTE | 2018-06-14 14:15 | NUR ---
HOB ELEVATED 30 DEGREES, DRESSINGS CDI, PEDAL PULSES PALPABLE. PT DENIES C/O AT THIS TIME, ANA PO FLUIDS. FAMILY AT BEDSIDE.
--- NOTE | 2018-06-14 14:37 | NUR ---
1420 HOB FULLY ELEVATED. DRESSINGS REMAIN CDI, PEDAL PULSES PALPABLE. ANA PO FLUIDS WITH NO C/O NAUSEA. DECLINES SANDWICH AT THIS TIME, STATES GETTING FOOD WTIH HER FAMILY UPON DC TO HOME. DC INSTRUCTIONS REVIEWED WITH PT AND MULTIPLE FAMILY MEMBERS WHO VERBALIZE UNDERSTANDING. PLAVIX PRESCRIPPTION TO PT, PT AND FAMILY VERBALIZE UNDERSTANDING OF STARTING THIS MEDICATION TOMORROW.
--- NOTE | 2018-06-14 14:58 | NUR ---
IV HAS BEEN DC'D WITH CATH INTACT AND PT DRESSED FOR DC WITH ASSIST. PT IS ALERT AND DENIES ANY C/O. HAS ALL PERSONAL BELONGINGS AND DC INSTRUCTIONS, PT ESCORTED TO PRIVATE AUTO VIA WC BY NURSE WITH SON DRIVING HER HOME.
== END 2018-06-14 14:55 | disposition home or self-care (01) ==
LOC: D.CATH 06:22
PROVIDERS: ATTEND Internal Medicine Cardiovascular Disease
DX: I25.119 Atherosclerotic heart disease of native coronary artery with unspecified angina pectoris (principal); T82.855A Stenosis of coronary artery stent, initial encounter; I70.203 Unspecified atherosclerosis of native arteries of extremities, bilateral legs; Z01.812 Encounter for preprocedural laboratory examination

== ENCOUNTER 2018-12-26 11:52 | Outpatient (CLI) | payer MEDICARE, OTHER ==
[~2018-12-26] VITALS: Ht 157.5 cm; Wt 85.9 kg
--- NOTE | ~2018-12-26 | HEMODYNAMI ---
PATIENT:ZAHIDA MAS MEDICAL RECORD: [id number] : 36 LOCATION:D.CAT ADMISSION DATE: 12/26/18 Generatedon:12/26/201817:17 Patient name: ZAHIDA MAS Patient #: [id number] SSN: [id number] : 1940 Date of study: 12/26/2018 Page: Of Hemodynamic Procedure Report Patient Data Patient Demographics Procedure consent was obtained First Name: ZAHIDA Gender: Female Last Name: CHACE : 1940 [facility] Initial: C Age: 78 year(s) Patient #: [id number] Race: SSN: [id number] Additional ID: [id number] Contact details Address: [address] [place] [address] [place]: [place] [facility] [place]: [address] Past Medical History Allergies: No known allergies Admission Admission Data Admission Date: 12/26/2018 Admission Time: 11:52 Arrival Date: 12/26/2018 Arrival Time: 0:00 Admit Source: Other Insurance Payor: Medicare [facility] #: [id number] Height (in.): 61 BSA: 1.87 (m2) Height (cm.): 154.94 BMI: 37.03 (kg/m2) Weight (lbs.): 196 Weight (kg.): 88.9 Lab Results Lab Result Date: 12/26/2018 Lab Result Time: 0:00 Biochemistry Name Units Result Min Max BUN mg/dl 15 --(--*-)-- 7 18 Creatinine mg/dl 0.9 --(-*--)-- 0.6 1.3 eGFR ml/min 64.53711 *-(----)-- 90 120 NONAFRICAN CBC Name Units Result Min Max Hematocrit % 40.5 -*(----)-- 42 54 Hemoglobin g/dl 12.9 -*(----)-- 13.5 17.5 Procedure Procedure Types Cath Procedure Diagnostic Procedure LHC LHC w/Coronaries Sedation Charges Moderate Sedation up to 15 minutes Peripheral Cath Diagnostic Procedure Director Of Counseling Peripheral Procedures AFRO (Diagnostic) Procedure Description Procedure Date Procedure Date: 12/26/2018 Procedure Start Time: 16:53 Procedure End Time: 17:15 Procedure Staff Name Function Ryan Finn MD Performing Physician Diane Cronin RT Monitor Candice García RT Monitor Jerardo Chapman RT Scrub Shannan Croft RT Scrub Ching Ashby RN Nurse Indication Coronary risk factors Angina Procedure Data Cath Procedure Fluoroscopy Diagnostic fluoroscopy Total fluoroscopy Time: 3.4 time: 3.4 min min Diagnostic fluoroscopy Total fluoroscopy dose: 840 dose: 840 mGy mGy Contrast Material Contrast Material Type Amount (ml) Isovue 300 163 Entry Location Entry Primary Successful Side Size Upsize Upsize Entry Closure Succes sful Closure Location (Fr) 1 (Fr) 2 (Fr) Remarks Device Remarks Femoral Left 5 Fr Exoseal artery Estimated blood loss: 5 ml Diagnostic catheters Device Type Used For End Catheter Placement MULTIPACK JL 4.0 5Fr Procedure catheter MULTIPACK 3DRC 5Fr Procedure catheter MULTIPACK Pigtail 5 Fr Procedure catheter Procedure Complications No complications Procedure Medications Medication Administration Route Dosage Zofran I.V. 4 mg Versed I.V. 1 mg Fentanyl I.V. 50 mcg Oxygen etCO2 Nasal cannula 2 l/min Lidocaine 2% added to field 20 Heparin Flush Bag added to field 2 bags (1000units/500ml NS) 0.9% NaCl I.V. 100 ml/hr Versed I.V. 1 mg Fentanyl I.V. 50 mcg Versed I.V. 1 mg Versed I.V. 1 mg Hemodynamics Rest BSA: 1.87 (m2) HGB: 12.9 (g/dl) O2 Consumption: Estimated: 176.69 (ml/min) O2 Co nsumption indexed: Estimated:94.49 (ml/min/m) Heart Rate: 82 (bpm) Pressure Samples Time Site Value (mmHg) Purpose Heart Use Rate(bpm) 17:05 LV 156/-2,14 Snapshot 78 17:05 AO 159/51(88) Pullback 77 17:05 LV 155/-3,9 Pullback 77 Gradients Valve Time Site 1 Site 2 Mean SEP/DFP Peak To Heart Use (mmHg) (sec/min) Peak Rate (mmHg) (bpm) Aortic 17:05 LV AO 0 23 0 77 155/-3,9 159/51(88) Calculations Valve P-P Mean Valve Index Valve Source Name Gradient Area Flow (cm2) Aortic 0 0 0 0 Snapshots Pre Cath Intra NCS Post Cath Vital Signs Time Heart Resp SPO2 etCO2 NIBP (mmHg) Rhythm Pain Sedation Rate (ipm) (%) (mmHg) Status Level (bpm) 16:41:46 72 15 95 0 203/177(189) NSR 0 (11) 10(A) , No pain 16:45:05 78 13 94 0 221/97(144) NSR 0 (11) 10(A) , No pain 16:49:37 68 29 97 0 174/80(139) NSR 0 (11) 10(A) , No pain 16:54:06 59 16 100 0.7 154/68(127) NSR 0 (11) 9(A) , No pain 16:58:26 67 10 99 0 153/80(124) NSR 0 (11) 9(A) , No pain 17:02:52 71 10 98 0.7 157/75(121) NSR 0 (11) 9(A) , No pain 17:07:12 79 13 99 0 147/69(119) NSR 0 (11) 9(A) , No pain 17:11:28 78 17 100 0 141/66(95) NSR 0 (11) 10(A) , No pain 17:15:51 74 16 100 3.7 141/66(112) NSR 0 (11) 10(A) , No pain Medications Time Medication Route Dose Verified Delivered Reason Notes Eff ectiveness by by 16:40:27 Oxygen etCO2 2 Ryan Buffie used for Nasal l/min Aakash Ashby RN procedure cannula 16:40:32 Lidocaine 2% added 20ml Ryan Ryan for local to vial Aakash Finn MD anesthetic field 16:40:37 Heparin Flush added 2 Ryan Ryan used for Bag to bags Aakash Finn MD procedure (1000units/500ml field NS) 16:40:48 0.9% NaCl I.V. 100 Ryan Buffie Per ml/hr Aakash Ashby RN physician 16:43:26 Zofran I.V. 4 mg Ryan Buffie Per Aakash Ashby RN physician 16:48:52 Versed I.V. 1 mg Ryan Buffie for Aakash Ashby RN sedation 16:48:58 Fentanyl I.V. 50 Ryan Buffie for mcg Aakash Ashby RN sedation 16:53:23 Versed I.V. 1 mg Ryan Buffie for Aakash Ashby RN sedation 16:53:26 Fentanyl I.V. 50 Ryan Buffie for mcg Aakash Ashby RN sedation 16:58:46 Versed I.V. 1 mg Ryan Buffie for Aakash Ashby RN sedation 17:06:11 Versed I.V. 1 mg Ryan Buffie for Aakash Ashby RN sedation Procedure Log Time Note 16:09:49 Informed consent obtained and on chart 16:12:40 Arrival Date: 12/26/2018 12:00:00 AM 16:12:45 Insurance Payor : Medicare 16:13:11 Patient Height : 61 inches 16:13:14 Patient Weight : 196 lbs 16:13:57 Admit Source: Other 16:14:49 Lab Result : Hematocrit 40.5 % 16:14:49 Lab Result : eGFR NONAFRICAN 64.32315 ml/min 16:14:49 Lab Result : Hemoglobin 12.9 g/dl 16:14:49 Lab Result : BUN 15 mg/dl 16:14:49 Lab Result : Creatinine 0.9 mg/dl 16:15:43 Diagnostic Cath Status : Elective 16:16:37 Indication : Coronary risk factors 16:16:47 Indication : Angina 16:17:12 Procedure Status Elective Heart Cath (OP). 16:17:15 Ching Ashby RN sent for patient. Start room use. 16:17:26 Time tracking: Regular hours (M-F 7:00 - 5:00) 16:17:32 Plan of Care:Hemodynamics will remain stable., Cardiac rhythm will remain stable., Comfort level will be maintained., Respiratory function will remain adequate., Patient/ family verbilizes understanding of procedure., Procedure tolerated without complication., Recovers from procedure without complications.. 16:18:17 H&P Date Dictated: 12/17/2018 Within 30 days and on chart., H&P Addendum completed by physician on day of procedure. (MUST COMPLETE FOR ALL OUTPATIENTS). 16:26:23 Patient received from Pre/Post Procedure Room to CCL 1 Alert and oriented. Tansferred to table in Supine position. 16:26:25 Warm blankets applied, and liang hugger turned on for patient comfort. 16::26 Correct patient and procedure confirmed by team. 16:: ECG and BP/O2 sat monitors applied to patient. 16::29 Vital chart was started 16:29:04 Pre-procedure instructions explained to patient. 16:29:06 Pre-op teaching completed and patient verbalized understanding. 16:29:11 Family in waiting room. 16:29:15 Patient NPO since Midnight. 16:29:27 Patient allergic to No known allergies 16:29:31 Is the patient allergic to Iodine/contrast media? No. 16:29:35 Is patient on blood thinner?Yes 16:30:13 ACC The patient was administered the following blood thiners within the last 24 hours: ACCPlavix 16:30:42 Pt had last plavix pm on day before procedure. 16:30:59 Procedure type changed to Cath procedure, Diagnostic procedure, LHC, LHC w/Coronaries, Sedation Charges, Moderate Sedation up to 15 minutes, Peripheral Cath Diagnostic Procedure, Director Of Counseling Peripheral Procedures, AFRO (Diagnostic) 16:31:08 Patient diabetic? Yes. 16:31:10 If diabetic: On Metformin? Yes 16:31:19 If on Metformin: Last Dose? 12/24/2018 16:31:29 Previous problem with sedation/anesthesia? Yes ? 16:31:36 Snore? No 16:31:38 Sleep apnea? No 16:31:40 Deviated septum? No 16:31:41 Opens mouth fully? Yes 16:31:42 Sticks out tongue? Yes 16:31:49 Dentures? Yes out 16:32:30 Pt has nausea with anethesia 16:32:40 Pre procedure: left dorsailis pedis pulse 2+ Normal; easily identifiable; not easily obliterated 16:32:45 Modified Viktor's test Radial > 7 seconds. 16:32:49 Patient pain scale 0/10 ?. 16:33:17 IV patent on arrival in right antecubital with 0.9% NaCl at O. 16:35:13 Left groin area was prepped with chlora-prep and draped in sterile fashion 16:35:19 Alarms reviewed by R. N. 16:35:19 Sharps counted by scrub and verified by R.N. 16:40:27 Oxygen 2 l/min etCO2 Nasal cannula was administered by Ching Ashby RN; used for procedure; Verbal order read back and verified. 16:40:32 Lidocaine 2% 20ml vial added to field was administered by Ryan Finn MD; for local anesthetic; Verbal order read back and verified. 16:40:37 Heparin Flush Bag (1000units/500ml NS) 2 bags added to field was administered by Ryan Finn MD; used for procedure; Verbal order read back and verified. 16:40:48 0.9% NaCl 100 ml/hr I.V. was administered by Ching Ashby RN; Per physician; Verbal order read back and verified. 16:43:26 Zofran 4 mg I.V. was administered by Ching Ashby RN; Per physician; Verbal order read back and verified. 16:44:01 Bilateral groins area was prepped with chlora-prep and draped in sterile fashion 16:44:39 Baseline sample Acquired. 16:44:49 Rhythm: sinus rhythm 16:44:52 Full Disclosure recording started 16:47:06 Use device set Femoral Dx 16:47:12 ACIST Syringe (33814) opened to sterile field. 16:47:13 Bag Decanter (2002S) opened to sterile field. 16:47:14 Medline Cath Pack ([id number]) opened to sterile field. 16:47:26 ACIST Hand Control (10509) opened to sterile field. 16:47:27 ACIST Manifold (66392) opened to sterile field. 16:47:29 Tegaderm 4 x 4 (1626W) opened to sterile field. 16:47:34 DIAGNOSTIC Multipack 5Fr catheter set ([id number]) opened to sterile field. 16:47:36 SHEATH 5FR Haskell (ZGC046) opened to sterile field. 16:47:37 EMERALD Guide Wire (914-407) opened to sterile field. 16:47:49 --------ALL STOP TIME OUT------ 16:47:53 Final Timeout: patient, procedure, and site verified with staff and physician. All members of the team are in agreement. 16:47:55 Bilateral groins site verified by team. 16:48:01 Fire Safety Assessment: A--An alcohol-based skin anteseptic being used preoperatively., C--Open oxygen or nitrous oxide is being used., D--An ESU, laser, or fiber-optic light is being used. 16:48:07 Physical assessment completed. ASA score P 2 - A patient with mild systemic disease as per Ryan Finn MD. 16:48:26 2) 60-89 Mildly reduced kidney function, and other findings (as for stage 1) point to kidney disease. 16:48:33 Maximum allowable contrast dose (3.7 X eGFR X 0.75)180 ml. 16:48:39 Sedation plan: IV Moderate Sedation Medication:Versed, Fentanyl 16:48:52 Versed 1 mg I.V. was administered by Ching Ashby RN; for sedation; Verbal order read back and verified. 16:48:58 Fentanyl 50 mcg I.V. was administered by Ching Ashby RN; for sedation; Verbal order read back and verified. 16:53:06 Procedure started. 16:53:13 Local anesthetic to right femoral artery with Lidocaine 2% by Ryan Finn MD.INITIAL ACCESS ONLY 16:53:23 Versed 1 mg I.V. was administered by Ching Ashby RN; for sedation; Verbal order read back and verified. 16:53:26 Fentanyl 50 mcg I.V. was administered by Ching Ashby RN; for sedation; Verbal order read back and verified. 16:56:25 Zero performed for pressure channel P1 16:57:40 A 5 Fr sheath was inserted into the Left Femoral artery 16:57:49 A MULTIPACK JL 4.0 5Fr catheter was advanced over the wire and used for Procedure. 16:58:46 Versed 1 mg I.V. was administered by Ching Ashby RN; for sedation; Verbal order read back and verified. 17:00:23 LCA angiography performed. 17:00:32 Catheter exchanged over wire. 17:01:15 A MULTIPACK 3DRC 5Fr catheter was advanced over the wire and used for Procedure. 17:02:51 RCA angiography performed. 17:02:53 Catheter exchanged over wire. 17:03:21 A MULTIPACK Pigtail 5 Fr catheter was advanced over the wire and used for Procedure. 17:03:39 Zero performed for pressure channel P1 17:04:24 LV gram done using EDUARDO 17:04:34 Injector settings: Ml/sec: 10, Volume: 20, 17:05:13 LV hemodynamics recorded. 17:05:31 EF : 60 % 17:05:54 Pigtail pulled down for Afro 17:06:11 Versed 1 mg I.V. was administered by Ching Ashby RN; for sedation; Verbal order read back and verified. 17:06:46 Abdominal angiogram w/ runoff was performed. 17:07:19 Left leg runoff performed. 17:07:52 Right leg runoff performed. 17:08:00 Catheter removed. 17:10:06 EXOSEAL 5Fr (EX500) opened to sterile field. 17:10:26 Sheath removed intact; hemostasis achieved with Exoseal to the Left Femoral artery. 17:11:02 Fluoroscopy time 03.40 minutes. 17:11:08 Fluoroscopy dose: 840 mGy 17:11:08 Flurop Dose total: 840 17:11:36 Dose Area Product 58974 mGy/cm. 17:11:38 Procedure ended.(Physican Out) 17:11:43 Contrast amount:Isovue 300 163ml. 17:11:55 Maximum allowable dose exceeded? No. 17:11:56 Sharps counted by scrub and verified by R.N. 17:12:13 Post-op/insertion site Left Femoral artery dressed using a 4 x 4 and Tegaderm. 17:12:31 Post left femerol artery:stable, soft, clean and dry 17:12:44 Post-procedure physical assessment completed. ASA score P 2 - A patient with mild systemic disease as per Ryan Finn MD. 17:12:48 Post procedure rhythm: unchanged. 17:12:52 Estimated blood loss: 5 ml 17:12:53 Post procedure instruction explained to patient.Patient verbalizes understanding. 17:12:55 Patient needs reinforcement of post procedure teaching. 17:15:11 Procedure and supply charges have been captured, reviewed, submitted and are correct. 17:15:20 Procedure Complication : No complications 17:15:24 Vital chart was stopped 17:15:26 Operative report dictated upon procedure completion. 17:15:28 See physician's report for complete and final results. 17:15:31 Report given to Pre/Post Procedure Room. 17:15:37 Patient transfered to Pre/Post Procedure Room with Stretcher. 17:15:44 Procedure ended. 17:15:44 Full Disclosure recording stopped 17:15:52 End room use (Document Last) 17:16:21 End room use (Document Last) 17:16:42 End room use (Document Last) Device Usage Item Name Manufacture Quantity Catalog Hospital Part Current Minimal L ot# / Number Charge Number Stock Stock Serial# Code ACIST Acist 1 99101 341930 [id number] 20 Syringe Medical (22484) Systems Inc Bag Microtek 1 2001S 312584 94083 [id number] 5 Decanter Medical Inc. (2001S) Medline Medline 1 [id number] 696807 36707 683160 5 Cath Pack ([id number]) ACIST Hand Acist 1 24998 835029 403184 616382 5 Control Medical (85332) Systems Inc ACIST Acist 1 99404 717831 596764 401977 5 Manifold Medical (34073) Systems Inc Tegaderm 4 3M 1 1626W 423356 842281 643658 5 x 4 (1626W) DIAGNOSTIC Cardinal 1 [id number] 455851 86614 501370 30 Multipack Health 5Fr catheter set (VB0320) SHEATH 5FR Terumo 1 [id number] 659448 685034 670412 5 Haskell (YCM769) EMERALD Cardinal 1 502-455 846378 298890 485549 5 Guide Wire Health (502-455) MULTIPACK Cardinal 1 649268 5 JL 4.0 5Fr Health catheter MULTIPACK Cardinal 1 691603 5 3DRC 5Fr Health catheter MULTIPACK Cardinal 1 887026 5 Pigtail 5 Health Fr catheter EXOSEAL 5Fr Cardinal 1 EX500 300668 252417 752373 10 (EX500) Health Signature Audit [place] Stage Time Signature Unsigned Intra-Procedure 12/26/2018 Candice García 5:16:21 PM RT(R) Intra-Procedure 12/26/2018 Ching Ashby RN 5:16:42 PM Intra-Procedure 12/26/2018 Ryan Finn MD 5:17:15 PM [facility] [address] [place] [address]
[~2018-12-26 11:52] MED LIST changes: +BAYER CHEWABLE81 MG PO; +PLAVIX75 MG PO
[2018-12-26 12:30] VITALS: BP 185/75; Ht 157.5 cm; Wt 85.9 kg
[2018-12-26 12:46] LABS: BASOPHILS 0.3 % (0-2); EOSINOPHILS 6.9 % (0-7); HEMATOCRIT 40.5 % (36.0-48.0); HEMOGLOBIN 12.9 g/dL (12-16); IMMATURE GRANULOCYTES 0.1 % (0-5); LYMPHOCYTES 19.2 % (15-50); MCH 28.1 pg (26.0-34.0); MCHC 31.9 g/dL (31.0-37.0); MCV 88.2 fL (80.0-100.0); MEAN PLATELET VOLUME 9.2 fL (7.4-10.4); MONOCYTES 8.6 % (2-11); NEUTROPHILS 64.9 % (40-80); PLATELET COUNT 284 10x3/uL (130-400); RBC 4.59 10x6/uL (4.00-5.40); RDW 13.4 % (11.5-14.5); WBC 7.1 10x3/uL (4.8-10.8)
[2018-12-26 13:07] LABS: CALCIUM 8.7 mg/dL (8.5-10.1); CHOL - HDL RATIO 3.4 ratio (2.3-4.1); CREATININE - SERUM 0.9 mg/dL (0.6-1.3); LDL-HDL RATIO 2.1 ratio (1.5-3.5)
--- NOTE | 2018-12-26 17:20 | NUR ---
PT RECEIVED FROM [employer] VIA STRETCHER FOR RECOVERY. PT SLEEPING BUT VERBALLY AROUSABLE. PT PLACED ON CARDIAC MONITORS, O2 PLACED VIA NC AT 2L. HR NSR RATE 77, RR 19, O2 SAT 97, BP 150/56 L GROIN W 5FR EXOCELE, DRESSING CDI NO BLEEDING OR HEMATOMA NOTED LEG PINK AND WARM, PEDAL PULSES PALPABLE. CALL LIGHT IN REACH. PT DENIES PAIN OR DISCOMFORT. DAUGHTER AT BEDSIDE
--- NOTE | 2018-12-26 17:46 | NUR ---
4542 DR REYES AT TALKING W PT AND DAUGHTER REGARDING PLAN OF CARE. PT RESTING COMFORTABLY, DENIES NEEDS AT THIS TIME. TOLERATING PO FLUIDS. HR 68, BP 137/61, O2 SAT 98. L GROIN SOFT, DRESSING CDI NO BLEEDING OR SWELLING NOTED. PT DENIES PAIN OR NAUSEA. CALL LIGHT IN REACH
--- NOTE | 2018-12-26 18:06 | NUR ---
PT RESTING COMFORTABLY. L GROIN SOFT, DRESSING REMAINS CDI NO BLEEDING OR SWELLING NOTED. LEG PINK AND WARM, PEDAL PULSES PALPABLE. CALL LIGHT IN REACH, DAUGHTER AT BEDSIDE. TOLERATING PO FLUIDS W/O NAUSEA.
--- NOTE | 2018-12-26 18:34 | NUR ---
L GROIN SOFT, DRESSING CDI NO BLEEDING OR SWELLING NOTED. PEDAL PULSES PALPABLE. HOB ELEVATED SLIGHTLY, SANDWICH TRAY SERVED. VSS. O2 REMOVED. CALL LIGHT IN REACH, DAUGTER REMAINS AT BEDSIDE
--- NOTE | 2018-12-26 19:04 | NUR ---
DISCHARGE INSTRUCTIONS REVIEWED W PT AND DAUGHTER, BOTH VERBALIZED UNDERSTANDING. GROIN REMAINS SOFT, DRESSING CDI NO BLEEDING OR HEMATOMA NOTED. IV REMOVED W CATH INTACT, MONITORS REMOVED AND PT UP TO DRESS FOR DISCHARGE W ASSIT OF DAUGHTER.
--- NOTE | 2018-12-26 19:13 | NUR ---
PT DISCHARGED VIA WC TO DAUGHTER WAITING IN PRIVATE VEHICLE. PT HAD ALL BELONGINGS AND DISCHARGE INFORMATION IN HAND.
== END 2018-12-26 19:18 | disposition home or self-care (01) ==
LOC: D.CATH 11:52
PROVIDERS: ATTEND Internal Medicine Cardiovascular Disease
DX: I25.110 Atherosclerotic heart disease of native coronary artery with unstable angina pectoris (principal); I73.9 Peripheral vascular disease, unspecified; K21.9 Gastro-esophageal reflux disease without esophagitis; F17.200 Nicotine dependence, unspecified, uncomplicated

== ENCOUNTER 2019-02-06 11:11 | Emergency (ER) | payer MEDICARE, OTHER ==
[~2019-02-06] VITALS: Ht 157.5 cm; Wt 85.9 kg
[2019-02-06 11:23] VITALS: Ht 157.5 cm; Wt 85.9 kg
[2019-02-06 12:40] LABS: BASOPHILS 0.4 % (0-2); EOSINOPHILS 7.8 % (0-7); HEMATOCRIT 39.2 % (36.0-48.0); HEMOGLOBIN 12.1 g/dL (12-16); IMMATURE GRANULOCYTES 0.1 % (0-5); LYMPHOCYTES 20.8 % (15-50); MCH 27.1 pg (26.0-34.0); MCHC 30.9 g/dL (31.0-37.0); MCV 87.7 fL (80.0-100.0); MEAN PLATELET VOLUME 9.2 fL (7.4-10.4); MONOCYTES 9.5 % (2-11); NEUTROPHILS 61.4 % (40-80); PLATELET COUNT 273 10x3/uL (130-400); RBC 4.47 10x6/uL (4.00-5.40); RDW 12.6 % (11.5-14.5); WBC 7.3 10x3/uL (4.8-10.8)
[2019-02-06 12:41] LABS: ANION GAP 10.6 mmol/L (8-16); CALCIUM 8.6 mg/dL (8.5-10.1); CREATININE - SERUM 0.8 mg/dL (0.6-1.3); POTASSIUM - SERUM 3.6 mmol/L (3.5-5.1)
[2019-02-06 12:46] LABS: ALBUMIN 3.4 g/dL (3.4-5.0); BILIRUBIN - TOTAL 0.34 mg/dL (0.2-1.3); PROTEIN - SERUM 7.2 g/dL (6.4-8.2)
[2019-02-06] MEDS ORDERED: MEDROL DOSE PACK4 MG PO (14:34)
[2019-02-06] MEDS ORDERED: ACETAMINOPHEN500 M1 PO (14:34)
[2019-02-06 15:22] VITALS: BP 155/65
== END 2019-02-06 15:22 | disposition home or self-care (01) ==
LOC: D.ER 11:11
PROVIDERS: Family Medicine
DX: M79.604 Pain in right leg (principal); M54.40 Lumbago with sciatica, unspecified side; E11.9 Type 2 diabetes mellitus without complications; Z79.84 Long term (current) use of oral hypoglycemic drugs; I10 Essential (primary) hypertension

== ENCOUNTER 2019-10-22 14:03 | Emergency (ER) | payer MEDICARE, OTHER ==
[~2019-10-22] VITALS: Ht 157.5 cm; Wt 84.1 kg
[~2019-10-22 14:03] MED LIST changes: +ACETAMINOPHEN500 M1 PO; +MEDROL DOSE PACK4 MG PO
[2019-10-22 14:13] VITALS: Ht 157.5 cm; Wt 84.1 kg
[2019-10-22 14:52] LABS: BASOPHILS 0.2 % (0-2); EOSINOPHILS 4.9 % (0-7); HEMATOCRIT 38.9 % (36.0-48.0); HEMOGLOBIN 11.6 g/dL (12-16); IMMATURE GRANULOCYTES 0.3 % (0-5); LYMPHOCYTES 14.2 % (15-50); MCH 25.8 pg (26.0-34.0); MCHC 29.8 g/dL (31.0-37.0); MCV 86.6 fL (80.0-100.0); MEAN PLATELET VOLUME 8.9 fL (7.4-10.4); MONOCYTES 7.3 % (2-11); NEUTROPHILS 73.1 % (40-80); RBC 4.49 10x6/uL (4.00-5.40); RDW 14.1 % (11.5-14.5)
[2019-10-22 14:54] LABS: PLATELET COUNT 356 10x3/uL (130-400)
[2019-10-22 14:59] LABS: CALC OSMOLALITY 282 mosm/kg (275-300); CALCIUM 9.3 mg/dL (8.5-10.1); CARBON DIOXIDE 32.1 mmol/L (21.0-32.0); CHLORIDE - SERUM 102 mmol/L (98-107); CREATININE - SERUM 1.1 mg/dL (0.6-1.3); POTASSIUM - SERUM 3.7 mmol/L (3.5-5.1); SODIUM 139 mmol/L (136-145); UREA NITROGEN 10 mg/dL (7-18); eGFR NON AFRICAN AMERICAN 51 mL/min (90-120)
[2019-10-22 15:03] LABS: GLUCOSE 213 mg/dL (74-106)
[2019-10-22 15:04] LABS: APTT 26.3 SECONDS (22.8-39.4); INR 1.01 (0.85-1.17); PROTIME 13.3 SECONDS (11.6-15.0)
[2019-10-22 15:17] LABS: ALBUMIN 2.9 g/dL (3.4-5.0); ALKALINE PHOSPHATASE 83 U/L (30-120); ALT (SGPT) 30 U/L (10-68); BILIRUBIN - TOTAL 0.25 mg/dL (0.2-1.3); CKMB 1.5 U/L (0.0-3.6); CREATINE KINASE 142 UL (21-215); MAGNESIUM - SERUM 1.5 mg/dL (1.8-2.4); PRO BNP 51 pg/mL (0-450); PROTEIN - SERUM 6.9 g/dL (6.4-8.2)
[2019-10-22 15:21] LABS: TROPONIN-I < 0.017 ng/mL (0.000-0.060)
[2019-10-22 15:34] LABS: BACTERIA FEW /hpf (NEGATIVE); BILIRUBIN NEGATIVE (NEGATIVE); EPITHELIAL CELLS 0-5 /hpf (0-5); GLUCOSE NEGATIVE (NEGATIVE); KETONE NEGATIVE (NEGATIVE); NITRITE NEGATIVE (NEGATIVE); RED CELLS - URINE OCC /hpf (0-5); UROBILINOGEN NORMAL (NORMAL); WHITE CELLS - URINE 0-5 /hpf (NEGATIVE)
[2019-10-22] MEDS ORDERED: ALBUTEROL SULF8.5 GM INH (16:24)
[2019-10-22] MEDS ORDERED: MUCINEX DM ER1 EAC1 PO (16:24)
[2019-10-22] MEDS ORDERED: LASIX20 MG PO (16:24)
[2019-10-22 16:53] VITALS: BP 168/94
== END 2019-10-22 16:54 | disposition home or self-care (01) ==
LOC: D.ER 14:03
PROVIDERS: Family Medicine
DX: J40 Bronchitis, not specified as acute or chronic (principal); R05 Cough; R60.0 Localized edema; R09.89 Other specified symptoms and signs involving the circulatory and respiratory systems; E11.9 Type 2 diabetes mellitus without complications; Z79.84 Long term (current) use of oral hypoglycemic drugs